=== PATIENT | female | born 1955 | race Caucasian/White ===

== ENCOUNTER 2017-10-29 07:28 | Observation (INO) ==
[2017-10-29] MEDS ORDERED: Morphine Inj 4 MG/ML Vial IV.PUSH ONE ×2 (08:26→14:16)
[2017-10-29] MEDS ORDERED: Sod Chloride 0.9% Inj 1,000 ML IV.CONT SCH (08:30)
--- NOTE | 2017-10-29 08:40 | ED ---
HPI General Chief Complaint: Abdominal Pain Stated Complaint: Vomitting/EVAC Time Seen by Provider: 10/29/17 08:12 Source: patient Mode of arrival: EMS Limitations: no limitations History of Present Illness HPI narrative: 62-year-old female with abdominal pain, nausea vomiting diarrhea. Patient states that symptoms started this morning. Patient states the pain is cramping pain localized to lower abdomen. Patient denies any pain radiation. Patient denies fever chills. Patient denies any dysuria frequency. Patient denies any vaginal discharge or bleeding. Patient denies any recent sick contact. Patient denies any recent travel. Patient status post appendectomy, cholecystectomy and splenectomy. Patient has history hypertension , hyperlipidemia. On a scale of 1-10 the pain is an 8. MD complaint: abdominal pain Onset (ago): hour(s) Pain Consistency: constant Location: LLQ and RLQ Severity: moderate Severity scale (1-10): 7 Quality: cramping and sharp Radiation: none Migration to: no migration Relieving factors: nothing Exacerbating factors: nothing Associated symptoms: nausea, vomiting and diarrhea Related Data Home Medications Medication Instructions Recorded Confirmed alprazolam [Xanax] 2 mg PO TID 10/29/17 10/29/17 aspirin [Aspirin Low Dose] 81 mg PO DAILY 10/29/17 10/29/17 [id number]-wptw 1 cap PO BID PRN 10/29/17 10/29/17 [Fioricet] cyanocobalamin (vitamin B-12) 1,000 mcg PO DAILY 10/29/17 10/29/17 [Vitamin B-12] morphine-naltrexone [Embeda] 1 cap PO Q12HR 10/29/17 10/29/17 ramipril [Altace] 5 mg PO DAILY 10/29/17 10/29/17 sertraline [Zoloft] 200 mg PO DAILY 10/29/17 10/29/17 tizanidine [Zanaflex] 4 mg PO Q8HR 10/29/17 10/29/17 topiramate [Topamax] 100 mg PO BID 10/29/17 10/29/17 trazodone 100 mg PO HS 10/29/17 10/29/17 Allergies Allergy/AdvReac Type Severity Reaction Status Date / Time ampicillin Allergy Severe edema Verified 10/29/17 08:20 erythromycin base Allergy Severe Itching Verified 10/29/17 08:20 Review of Systems Except as stated in HPI: all other systems reviewed are negative PMFSH Medical History Medical History Anxiety (Acute) Cataract fragments of eye following cataract surgery (Acute) Chest pain (Acute) Depression (Acute) FHx: cholecystectomy (Acute) Fibromyalgia (Acute) HTN (hypertension) (Acute) High cholesterol (Acute) Migraine (Acute) Surgical History Surgical History H/O splenectomy (Acute) H/O: section (Acute) Hx of appendectomy (Acute) Hx of surgical amputation of finger (Acute) Family History Family History Mother Coronary artery disease Social History Social History Substance History: No History of Abuse Second Hand Smoke Exposure: No Smoking Status: Former smoker Tobacco Type: E-Cigarettes How Often Do You Have a Drink Containing Alcohol: Never Recent Travel in [facility] within the Last 8 Weeks: No Recent Out of Country Travel within the Last 8 Weeks: No Immunization History Tetanus Immunization: >5 Years Hx Influenza Vaccine This Season: Yes Exam Narrative Exam Narrative: GENERAL: Well-nourished, well-developed patient. SKIN: Focused skin assessment warm/dry. HEAD: Normocephalic. EYES: No scleral icterus. No injection or drainage. NECK: Supple, trachea midline. No JVD or lymphadenopathy. CARDIOVASCULAR: Regular rate and rhythm without murmurs, gallops, or rubs. RESPIRATORY: Breath sounds equal bilaterally. No accessory muscle use. GASTROINTESTINAL: Abdomen soft, nondistended. Patient has mild to moderate tenderness in palpation lower abdomen. No rebound tenderness. No mass. MUSCULOSKELETAL: No cyanosis, or edema. BACK: Nontender without obvious deformity. No CVA tenderness. Course Initial Documented Vital Signs Temperature 97 F L 10/29/17 07:52 Pulse Rate 74 10/29/17 07:52 Respiratory Rate 21 10/29/17 07:52 Blood Pressure 121/58 L 10/29/17 07:52 Pulse Oximetry 99 10/29/17 07:52 Last Documented Vital Signs Temperature 98.1 F 10/30/17 15:42 Pulse Rate 75 10/30/17 15:42 Respiratory Rate 18 10/30/17 15:42 Blood Pressure 195/85 H 10/30/17 15:42 Pulse Oximetry 100 10/30/17 15:42 Medical Decision Making MDM Narrative Medical decision making narrative: 62-year-old female complains of abdominal pain with nausea vomiting diarrhea. Normal saline solution 1 25 cc an hour. Zofran 4 mg ODT. Levaquin 750 mg IV. Flagyl 500 mg IV. Differential Diagnosis Differential Diagnosis: Differential diagnosis including gastroenteritis, gastritis, PUD, pancreatitis, colitis, UTI, pyelonephritis, nephrolithiasis. Lab Data Result diagrams: 10/30/17 03:31 10/29/17 08:38 Lab Results 10/29/17 10/29/17 10/29/17 Range/Units 08:30 08:38 18:32 WBC 19.4 H (4.0-11.0) th/mm3 RBC 4.18 (4.00-5.30) mil/mm3 Hgb 12.4 (11.6-15.3) gm/dL Hct 38.1 (35.0-46.0) % MCV 91.1 (80.0-100.0) fL MCH 29.6 (27.0-34.0) pg MCHC 32.5 (32.0-36.0) % RDW 13.9 (11.6-17.2) % Plt Count 313 (150-450) th/mm3 MPV 9.6 (7.0-11.0) fL Prelim Diff (Auto) Slide review pending Neut % (Auto) 63.3 (16.0-70.0) % Lymph % (Auto) 32.7 (9.0-44.0) % [place] % (Auto) 2.6 (0.0-8.0) % Eos % (Auto) 0.8 (0.0-4.0) % Baso % (Auto) 0.6 (0.0-2.0) % Neut # (Auto) 12.3 H (1.8-7.7) th/mm3 Lymph # (Auto) 6.3 H (1.0-4.8) th/mm3 [place] # (Auto) 0.5 (0.0-0.9) th/mm3 Eos # (Auto) 0.1 (0.0-0.4) th/mm3 Baso # (Auto) 0.1 (0.0-0.2) th/mm3 WBC Differential Manual diff final Seg Neuts % (Manual) 65 (16-70) % Lymphocytes % (Manual) 30 (9-44) % Monocytes % (Manual) 4 (0-8) % Eosinophils % (Manual) 1 (0-4) % Abs Neuts (Manual) 12.6 H (1.8-7.7) th/mm3 Differential Comment . Platelet Estimate Normal (Normal) Platelet Morphology Normal (Normal) Acanthocytes (Spur) 3+ H (None) Sodium 145 (136-145) meq/L Potassium 3.5 (3.5-5.1) meq/L Chloride 115 H (98-107) meq/L Carbon Dioxide 17.0 L (21.0-32.0) meq/L Anion Gap 13 (5-15) meq/L BUN 16 (7-18) mg/dL Creatinine 1.24 H (0.50-1.00) mg/dL Estimated GFR 44 L (>89) mL/min Random Glucose 146 H (74-106) mg/dL Calcium 9.3 (8.5-10.1) mg/dL Total Bilirubin 0.6 (0.2-1.0) mg/dL AST 21 (15-37) U/L ALT 22 (10-53) U/L Alkaline Phosphatase 77 (45-117) U/L Total Protein 6.7 (6.4-8.2) g/dL Albumin 3.8 (3.4-5.0) g/dL Lipase 167 (73-393) U/L Urine Color Kathy (Yellw/Straw) Urine Clarity Hazy H (Clear) Urine pH 5.0 (5.0-8.5) Ur Specific [place] 1.041 H (1.002-1.035) Urine Protein Negative (Neg-Trace) mg/dL Urine Glucose (UA) Negative (Negative) mg/dL Urine Ketones Trace H (Negative) mg/dL Urine Occult Blood Small H (Negative) Urine Nitrate Negative (Negative) Urine Bilirubin Negative (Negative) Urine Urobilinogen 2.0 H (Less than 2) mg/dL Ur Leukocyte Esterase Negative (Negative) Urine RBC 4 H (0-3) /hpf Urine WBC Less than 1 (0-5) /hpf Ur Squamous Epith Cells 1 (0-5) /hpf Micro UA Comment Culture not ind Urine Culture Comments Culture not ind Stl C.difficile Tox PCR (Negative) St C. diff Tox Epid 027 (Negative) 10/30/17 10/30/17 Range/Units 01:30 03:31 WBC (4.0-11.0) th/mm3 RBC (4.00-5.30) mil/mm3 Hgb 10.4 L D (11.6-15.3) gm/dL Hct 31.3 L (35.0-46.0) % MCV (80.0-100.0) fL MCH (27.0-34.0) pg MCHC (32.0-36.0) % RDW (11.6-17.2) % Plt Count (150-450) th/mm3 MPV (7.0-11.0) fL Prelim Diff (Auto) Neut % (Auto) (16.0-70.0) % Lymph % (Auto) (9.0-44.0) % [place] % (Auto) (0.0-8.0) % Eos % (Auto) (0.0-4.0) % Baso % (Auto) (0.0-2.0) % Neut # (Auto) (1.8-7.7) th/mm3 Lymph # (Auto) (1.0-4.8) th/mm3 [place] # (Auto) (0.0-0.9) th/mm3 Eos # (Auto) (0.0-0.4) th/mm3 Baso # (Auto) (0.0-0.2) th/mm3 WBC Differential Seg Neuts % (Manual) (16-70) % Lymphocytes % (Manual) (9-44) % Monocytes % (Manual) (0-8) % Eosinophils % (Manual) (0-4) % Abs Neuts (Manual) (1.8-7.7) th/mm3 Differential Comment Platelet Estimate (Normal) Platelet Morphology (Normal) Acanthocytes (Spur) (None) Sodium (136-145) meq/L Potassium (3.5-5.1) meq/L Chloride (98-107) meq/L Carbon Dioxide (21.0-32.0) meq/L Anion Gap (5-15) meq/L BUN (7-18) mg/dL Creatinine (0.50-1.00) mg/dL Estimated GFR (>89) mL/min Random Glucose (74-106) mg/dL Calcium (8.5-10.1) mg/dL Total Bilirubin (0.2-1.0) mg/dL AST (15-37) U/L ALT (10-53) U/L Alkaline Phosphatase (45-117) U/L Total Protein (6.4-8.2) g/dL Albumin (3.4-5.0) g/dL Lipase (73-393) U/L Urine Color (Yellw/Straw) Urine Clarity (Clear) Urine pH (5.0-8.5) Ur Specific [place] (1.002-1.035) Urine Protein (Neg-Trace) mg/dL Urine Glucose (UA) (Negative) mg/dL Urine Ketones (Negative) mg/dL Urine Occult Blood (Negative) Urine Nitrate (Negative) Urine Bilirubin (Negative) Urine Urobilinogen (Less than 2) mg/dL Ur Leukocyte Esterase (Negative) Urine RBC (0-3) /hpf Urine WBC (0-5) /hpf Ur Squamous Epith Cells (0-5) /hpf Micro UA Comment Urine Culture Comments Stl C.difficile Tox PCR Negative (Negative) St C. diff Tox Epid 027 Negative (Negative) Imaging Data Radiologist's impression: ITS Impressions Abdomen/Pelvis CT 10/29/17 09:46 CONCLUSION: 1. Diffuse colitis but greatest involving the descending and sigmoid colon. Slight inflammatory changes and minimal ascites. No perforation or abscess. 2. Cholecystectomy. Discharge Plan Discharge Disposition Patient Disposition: 30 Still Patient Discharge Details Discharge Problem: Colitis Physicians Team ED Provider: Tl Marques Primary Care Provider: Loco Quiroga V Attending Provider: Luther Berumen Other Providers: Barbara Ayers Discharge Interventions Interventions: ED Discharge Assessment Last Done: 10/29/17 15:37 Vital Signs Last Done: 10/29/17 13:00 Status ED Status: Left Department Discharge Information Discharge Date/Time: 10/29/17 15:37
[2017-10-29 08:41] LABS: Baso # (Auto) 0.1 th/mm3 (0.0-0.2); Baso % (Auto) 0.6 % (0.0-2.0); Eos # (Auto) 0.1 th/mm3 (0.0-0.4); Eos % (Auto) 0.8 % (0.0-4.0); Hematocrit 38.1 % (35.0-46.0); Hemoglobin 12.4 gm/dL (11.6-15.3); Lymph # (Auto) 6.3 th/mm3 (1.0-4.8); Lymph % (Auto) 32.7 % (9.0-44.0); Mean Corpuscular HGB Conc 32.5 % (32.0-36.0); Mean Corpuscular Hemoglobin 29.6 pg (27.0-34.0); Mean Corpuscular Volume 91.1 fL (80.0-100.0); Mean Platelet Volume 9.6 fL (7.0-11.0); Mono # (Auto) 0.5 th/mm3 (0.0-0.9); Mono % (Auto) 2.6 % (0.0-8.0); Neut # (Auto) 12.3 th/mm3 (1.8-7.7); Neut % (Auto) 63.3 % (16.0-70.0); Platelet Count 313 th/mm3 (150-450); Red Blood Count 4.18 mil/mm3 (4.00-5.30); Red Cell Distribution Width 13.9 % (11.6-17.2); White Blood Count 19.4 th/mm3 (4.0-11.0)
[2017-10-29 09:09] LABS: Alanine Aminotransferase 22 U/L (10-53)
[2017-10-29 09:10] LABS: Eosinophils 1 % (0-4); Lymphocytes 30 % (9-44); Monocytes 4 % (0-8)
[2017-10-29 09:11] LABS: Platelet Estimate Normal (Normal); Platelet Morphology Normal (Normal)
[2017-10-29 09:13] LABS: Acanthocytes 3+
[2017-10-29 09:15] LABS: Alkaline Phosphatase 77 U/L (45-117); Total Protein 6.7 g/dL (6.4-8.2)
[2017-10-29 09:18] LABS: Albumin 3.8 g/dL (3.4-5.0); Anion Gap 13 meq/L (5-15); Blood Urea Nitrogen 16 mg/dL (7-18); Calcium 9.3 mg/dL (8.5-10.1); Chloride 115 meq/L (98-107); Glomerular Filtration Rate 44 mL/min (>89); Glucose,Random 146 mg/dL (74-106); Lipase 167 U/L (73-393); Sodium 145 meq/L (136-145)
[2017-10-29 09:20] LABS: Aspartate Aminotransferase 21 U/L (15-37); Potassium 3.5 meq/L (3.5-5.1)
--- NOTE | 2017-10-29 10:43 | CT ---
EXAM DATE: 10/29/2017 10:31 AM EDT AGE/SEX: 62 years / Female INDICATIONS: Bilateral lower quadrant pain, nausea and vomiting. CLINICAL DATA: This is the patient's initial encounter. Patient reports that signs and symptoms have been present for 1 day and indicates a pain score of 7/10. MEDICAL/SURGICAL HISTORY: Hypertension. Fibromyalgia. Cholecystectomy. section. Spl enectomy. Appendectomy. ORAL CONTRAST: No oral contrast ingested. RADIATION DOSE: 6.64 CTDI (mGy) COMPARISON: POI, CT ABDOMEN AND PELVIS W AND W/O CONTRAST, 09/13/2017. . TECHNIQUE: Multiple contiguous axial images were obtained through the abdomen and pelvis following b olus infusion of 80 ml Omnipaque 350 (iohexol) nonionic water-soluble contrast as a single exam dos e. No oral contrast ingested. Using automated exposure control and adjustment of the mA and/or kV ac cording to patient size, radiation dose was kept as low as reasonably achievable to obtain optimal di agnostic quality images. DICOM format image data is available electronically for review and comparis on. FINDINGS: Lower Lungs: The visualized lower lungs are clear. Liver: The liver has a homogeneous density without space-occupying lesion. Cholecystectomy clips. The re is no dilation of the biliary tree. Spleen: Homogeneous density without enlargement. Pancreas: Unremarkable without mass or calcification. Kidneys: Normal in size and shape. No evidence of mass or hydronephrosis. Adrenal Glands: Unremarkable. Aorta: The aorta and proximal iliac vessels are grossly unremarkable without aneurysmal dilation. Bowel/Mesentery: Diffuse colonic wall thickening greatest within the descending and sigmoid colon. S light inflammatory changes in minimal adjacent fluid. Abdominal Wall: Intact. Retroperitoneum: No evidence of adenopathy in the retrocrural, para-aortic, or deep pelvic regions. Bladder: Contours are smooth. Reproductive Organs: No abnormal masses or calcifications seen. Inguinal: The inguinal region is unremarkable without evidence of adenopathy. Bony Structures: Unremarkable. CONCLUSION: 1. Diffuse colitis but greatest involving the descending and sigmoid colon. Slight inflammatory tejada ges and minimal ascites. No perforation or abscess. 2. Cholecystectomy. Electronically signed by: Vineet Elliott MD 10/29/2017 10:42 AM EDT
[2017-10-29] MEDS: Enoxaparin Inj 40 MG/0.4 ML Syringe SQ SCH (13:16)
--- NOTE | 2017-10-29 13:41 | P.HPIM ---
History of Present Illness Primary Care Physician: Loco Quiroga MD History of Present Illness: Mrs. Marcail is a 62 year old female. She has come into the hospital secondary to hyperemesis. Mild dehydration is present. Imaging of the abdomen shows colitis. I question her on whether she has a past history of any recurrent pattern of this condition. Patient says in the past 3 months she might have been having monthly episodes of colitis. Her cooks a lot so she feels that she might have a risk for foodborne illness. No sick contacts which would decrease her chance for a viral illness. No recent antibiotic use but C. difficile colitis is being evaluated for. Primary complaint is abdominal pain which is in her lower abdomen and crampy. She has had a splenectomy, cholecystectomy, and appendectomy. No other complaints. - Diagnosis (1) Hyperemesis (2) Dehydration Inpatient Certification: I certify that the inpatient services were ordered in accordance with Medicare regulations governing the order. This includes certification that hospital inpatient services are reasonable and necessary and in the case of services not specified as inpatient-only under 42 CFR 419.22(n), that they are appropriately provided as inpatient services in accordance to with the 2-midnight benchmark under 43 CFR 412.3(e) Review of Systems Constitutional: Denies body ache(s), Denies fever(s), Denies night sweats Eyes: Denies blind spots, Denies blurry vision, Denies change in vision Ears, Nose, Mouth, and Throat: Denies abnormal hearing, Denies bleeding gums, Denies change in voice Cardiovascular: Denies chest pain, Denies chest pain at rest, Denies chest pain with activity, Denies rapid, pounding, or irregular heartbeat Respiratory: Denies cough, Denies shortness of breath, Denies wheezing Gastrointestinal: Reports abdominal pain, Reports nausea, Reports vomiting Comments: Diarrhea Musculoskeletal: Denies back pain, Denies body aches, Denies deformity, Denies joint pain Skin/Breast: Denies rash, Denies skin pain, Denies skin ulcer Neurologic: Denies abnormal hearing, Denies abnormal movements, Denies abnormal speech PMFSH - History History Provided By: Patient, Family Member - Medical History Medical History: Medical History (Last Reviewed 10/29/17 @ 08:38 by Tl Marques MD) Anxiety Cataract fragments of eye following cataract surgery Chest pain Depression FHx: cholecystectomy Fibromyalgia HTN (hypertension) High cholesterol Migraine - Surgical History Surgical History: Surgical History (Last Reviewed 10/29/17 @ 08:38 by Tl Marques MD) H/O splenectomy H/O: section Hx of appendectomy Hx of surgical amputation of finger - Family History Family History: Family History (Last Updated 10/29/17 @ 14:12 by Eugene Esposito MD) Mother Coronary artery disease - Tobacco History Second Hand Smoke Exposure: Yes Tobacco Use In Past 30 Days: No Smoking Status: Former smoker Tobacco Type: E-Cigarettes - Alcohol History How Often Do You Have a Drink Containing Alcohol: Never - Substance Use History Substance History: No History of Abuse - Travel History Recent Travel in the [place] Within the Last 8 Weeks: No Recent Travel Out of the Country Within the Last 8 Weeks: No - Immunization History Tetanus Immunization: >5 Years Hx Influenza Vaccine This Season: Yes Medications and Allergies Active Medications: Active Medications Al Hydroxide/Mg Hydroxide (Milk Of Magndaniela Liq) 30 ml PO Q12H PRN PRN Reason: Mild Constipation Enoxaparin Sodium (Lovenox Inj) 40 mg SQ Q24H [place]YSON Last Admin: 10/29/17 13:16 Dose: 40 mg Sodium Chloride (Ns Inj) 1,000 mls @ 125 mls/hr IV.CONT .Q8H ALLYSON Stop: 10/29/17 16:29 Last Admin: 10/29/17 09:36 Dose: 125 mls/hr Levofloxacin/Dextrose (Levaquin 750 Mg Premix Inj) 150 mls @ 100 mls/hr IV.SIG ONCE ONE Stop: 10/29/17 13:41 Last Admin: 10/29/17 13:17 Dose: 100 mls/hr Sodium Chloride (Ns Inj) 1,000 mls @ 100 mls/hr IV.CONT .Q10H [place] Ondansetron HCl (Zofran Inj) 4 mg IV.PUSH Q6H PRN PRN Reason: NAUSEA OR VOMITING Sodium Chloride (Ns Flush) 2 ml IV.FLUSH PRN PRN PRN Reason: FLUSH AFTER USING IV ACCESS Last Admin: 10/29/17 09:39 Dose: 2 ml Allergies Allergy/AdvReac Type Severity Reaction Status Date / Time ampicillin Allergy Severe edema Verified 10/29/17 08:20 erythromycin base Allergy Severe Itching Verified 10/29/17 08:20 Home Medications Medication Instructions Recorded Confirmed Type alprazolam [Xanax] 2 mg PO TID 10/29/17 10/29/17 History aspirin [Aspirin Low Dose] 81 mg PO DAILY 10/29/17 10/29/17 History [id number]-bmevcidesrfms-cwcy 1 cap PO BID PRN 10/29/17 10/29/17 History [Fioricet] cyanocobalamin (vitamin B-12) 1,000 mcg PO DAILY 10/29/17 10/29/17 History [Vitamin B-12] morphine-naltrexone [Embeda] 1 cap PO Q12HR 10/29/17 10/29/17 History ramipril [Altace] 5 mg PO DAILY 10/29/17 10/29/17 History sertraline [Zoloft] 200 mg PO DAILY 10/29/17 10/29/17 History tizanidine [Zanaflex] 4 mg PO Q8HR 10/29/17 10/29/17 History topiramate [Topamax] 100 mg PO BID 10/29/17 10/29/17 History trazodone 100 mg PO HS 10/29/17 10/29/17 History Exam Vital signs: Vital Signs 10/29/17 07:52 10/29/17 08:31 10/29/17 09:23 Temperature 97 F L Pulse Rate 74 74 Respiratory Rate 21 18 18 Blood Pressure 121/58 L 146/88 H Pulse Oximetry 99 98 10/29/17 13:00 Temperature Pulse Rate 95 H Respiratory Rate 15 Blood Pressure 157/80 H Pulse Oximetry 97 Intake & Output 10/28/17 10/29/17 10/29/17 18:59 06:59 18:59 Weight 46.825 kg - Routine HEENT Exam Comments: GENERAL: NAD, A&Ox3 HEAD: Normocephalic. NECK: Supple, trachea midline. No lymphadenopathy. EYES: No scleral icterus. No injection or drainage. CARDIOVASCULAR: Regular rate and rhythm without murmurs, gallops, or rubs. RESPIRATORY: Breath sounds equal bilaterally. No accessory muscle use. GASTROINTESTINAL: Abdomen soft, non-tender, nondistended. MUSCULOSKELETAL: No cyanosis, or edema. SKIN: Warm and dry. NEURO: No focal neurological deficits. Results - Labs CBC & Chem 7: 10/29/17 08:30 10/29/17 08:38 Labs: Short CBC 10/29/17 Range/Units 08:30 WBC 19.4 H (4.0-11.0) th/mm3 Hgb 12.4 (11.6-15.3) gm/dL Hct 38.1 (35.0-46.0) % Plt Count 313 (150-450) th/mm3 BMP 10/29/17 08:38 Sodium 145 Potassium 3.5 Chloride 115 H Carbon Dioxide 17.0 L BUN 16 Creatinine 1.24 H Calcium 9.3 Liver Function 10/29/17 Range/Units 08:38 Total Bilirubin 0.6 (0.2-1.0) mg/dL AST 21 (15-37) U/L ALT 22 (10-53) U/L Alkaline Phosphatase 77 (45-117) U/L Albumin 3.8 (3.4-5.0) g/dL - Imaging Impressions Abdomen/Pelvis CT 10/29/17 09:46 CONCLUSION: 1. Diffuse colitis but greatest involving the descending and sigmoid colon. Slight inflammatory changes and minimal ascites. No perforation or abscess. 2. Cholecystectomy. Caprini VTE Risk Assessment Caprini VTE Risk Assessment: Moderate/High Risk (score >= 2) Caprini Risk Assessment Model: Point Value = 1 Point Value = 2 Point Value = 3 Point Value = 5 Age 41-60 Minor surgery BMI > 25 kg/m2 Swollen legs Varicose veins or History of unexplained or recurrent spontaneous Oral contraceptives or hormone replacement Sepsis (< 1 month) Serious lung disease, including pneumonia (< 1 month) Abnormal pulmonary function Acute myocardial infarction Congestive heart failure (< 1 month) History of inflammatory bowel disease Medical patient at bed rest Age 61-74 Arthroscopic surgery Major open surgery (> 45 min) Laparoscopic surgery (> 45 min) Malignancy Confined to bed (> 72 hours) Immobilizing plaster cast Central venous access Age >= 75 History of VTE Family history of VTE Factor V Leiden Prothrombin [id number] Lupus anticoagulant Anticardiolipin antibodies Elevated serum homocysteine Heparin-induced thrombocytopenia Other congenital or acquired thrombophilia Stroke (< 1 month) Elective arthroplasty Hip, pelvis, or leg fracture Acute spinal cord injury (< 1 month) Prophylaxis Regimen: Total Risk Factor Score Risk Level Prophylaxis Regimen 0-1 Low Early ambulation 2 Moderate Order ONE of the following: *Sequential Compression Device (SCD) *Heparin 5000 units SQ BID 3-4 Higher Order ONE of the following medications: *Heparin 5000 units SQ TID *Enoxaparin/Lovenox 40 mg SQ daily (WT < 150 kg, CrCl > 30 mL/min) *Enoxaparin/Lovenox 30 mg SQ daily (WT < 150 kg, CrCl > 10-29 mL/min) *Enoxaparin/Lovenox 30 mg SQ BID (WT < 150 kg, CrCl > 30 mL/min) AND/OR *Sequential Compression Device (SCD) 5 or more Highest Order ONE of the following medications: *Heparin 5000 units SQ TID (Preferred with Epidurals) *Enoxaparin/Lovenox 40 mg SQ daily (WT < 150 kg, CrCl > 30 mL/min) *Enoxaparin/Lovenox 30 mg SQ daily (WT < 150 kg, CrCl > 10-29 mL/min) *Enoxaparin/Lovenox 30 mg SQ BID (WT < 150 kg, CrCl > 30 mL/min) AND *Sequential Compression Device (SCD) Assessment and Plan - Assessment (1) Hyperemesis Code(s): R11.10 - Vomiting, unspecified Status: Acute (2) Dehydration Code(s): E86.0 - Dehydration Status: Acute - Plan 62-year-old female admitted secondary to hyperemesis, dehydration, and colitis Colitis Hyperemesis Dehydration Screen for C. difficile IV hydration Clear liquid diet Consult gastroenterology, given patient's history of possible established pattern of colitis Flagyl IV IV morphine for pain as needed Hypertension Continue baseline treatment Follow blood pressures Adjust treatments as needed Hyperlipidemia Continue present treatment Follow as an outpatient Anxiety Cataract fragments of eye following cataract surgery Chest pain history Depression history Fibromyalgia Migraine history No acute changes in these conditions No change to baseline treatments DVT prophylaxis Lovenox
[2017-10-29] MEDS ORDERED: Morphine Inj 4 MG/ML Vial IV.PUSH PRN (14:00)
--- NOTE | 2017-10-29 15:39 | ECG ---
Date Performed: 10/29/2017 Time Performed: 07:45:13 PTAGE: 62 years EKG: SINUS BRADYCARDIA WITH OCCASIONAL SUPRAVENTRICULAR PREMATURE COMPLEXES ST/T-WAVE ABNORMALIT Y, CONSIDER INFERIOR ISCHEMIA ABNORMAL ECG NO PREVIOUS TRACING DOCTOR: Zafar Adames Interpretating Date/Time 10/29/2017 15:36:27
--- NOTE | 2017-10-29 17:20 | P.CONGI ---
History of Present Illness Consult date: 10/29/17 Consult reason: Abdominal pain Chief complaint: colitis History of Present Illness: This is a 62-year-old female who presented to the emergency room on 10/29/2017 with lower abdominal pain uncontrolled and nausea and vomiting. Patient states onset of watery uncontrolled diarrhea at least 3-4 times a day which is aggravated by food, no relieving factors. Onset of symptoms approximately 3 months ago she describes the pain as a lower crampy sensation and his continued to worsen up to the point of the last 24 hours where she could not control the pain. Patient also notes small amount of bright red blood on tissue when wiping this a.m. but otherwise no obvious bleeding. Patient has no significant family history of colon cancer and does note last colonoscopy in the [place] area in 2015 showing polyps and diverticulosis. Patient states she no longer eats corn or notes. Current labs show hemoglobin 12.4 without any hematemesis or obvious oozing rectal bleeding. Patient denies any fever or headaches. Patient states mild nausea persists but no further vomiting. Abdominal imaging showed diffuse colitis in the descending and sigmoid colon, minimal ascites, and no perforation. Patient denies any recent sick contacts and no recent antibiotic use. Review of Systems All other systems reviewed negative except as stated in HPI PMFSH - History History Provided By: Patient, Family Member - Medical History Medical History: Medical History (Last Reviewed 10/29/17 @ 08:38 by Tl Marques MD) Anxiety Cataract fragments of eye following cataract surgery Chest pain Depression FHx: cholecystectomy Fibromyalgia HTN (hypertension) High cholesterol Migraine - Surgical History Surgical History: Surgical History (Last Reviewed 10/29/17 @ 08:38 by Tl Marques MD) H/O splenectomy H/O: section Hx of appendectomy Hx of surgical amputation of finger - Family History Family History: Family History (Last Updated 10/29/17 @ 14:12 by Eugene Esposito MD) Mother Coronary artery disease - Tobacco History Second Hand Smoke Exposure: Yes Tobacco Use In Past 30 Days: No Smoking Status: Former smoker Tobacco Type: E-Cigarettes - Alcohol History How Often Do You Have a Drink Containing Alcohol: Never - Substance Use History Substance History: No History of Abuse - Travel History Recent Travel in the [place] Within the Last 8 Weeks: No Recent Travel Out of the Country Within the Last 8 Weeks: No - Immunization History Tetanus Immunization: >5 Years Hx Influenza Vaccine This Season: Yes Medications and Allergies Active Medications: Active Medications Al Hydroxide/Mg Hydroxide (Milk Of Adam Liq) 30 ml PO Q12H PRN PRN Reason: Mild Constipation Enoxaparin Sodium (Lovenox Inj) 40 mg SQ Q24H [facility] Last Admin: 10/29/17 13:16 Dose: 40 mg Sodium Chloride (Ns Inj) 1,000 mls @ 100 mls/hr IV.CONT .Q10H [facility] Metronidazole/Sodium Chloride (Flagyl 500 Mg Inj) 100 mls @ 100 mls/hr IV.SIG Q8H [facility] Morphine Sulfate (Morphine Inj) 2 mg IV.PUSH Q4H PRN PRN Reason: PAIN SCALE 3 TO 5 Morphine Sulfate (Morphine Inj) 4 mg IV.PUSH Q4H PRN PRN Reason: PAIN SCALE 6 TO 10 Ondansetron HCl (Zofran Inj) 4 mg IV.PUSH Q6H PRN PRN Reason: NAUSEA OR VOMITING Sodium Chloride (Ns Flush) 2 ml IV.FLUSH PRN PRN PRN Reason: FLUSH AFTER USING IV ACCESS Last Admin: 10/29/17 09:39 Dose: 2 ml Allergies Allergy/AdvReac Type Severity Reaction Status Date / Time ampicillin Allergy Severe edema Verified 10/29/17 08:20 erythromycin base Allergy Severe Itching Verified 10/29/17 08:20 Home Medications Medication Instructions Recorded Confirmed Type alprazolam [Xanax] 2 mg PO TID 10/29/17 10/29/17 History aspirin [Aspirin Low Dose] 81 mg PO DAILY 10/29/17 10/29/17 History [id number]-[id number] 1 cap PO BID PRN 10/29/17 10/29/17 History [Fioricet] cyanocobalamin (vitamin B-12) 1,000 mcg PO DAILY 10/29/17 10/29/17 History [Vitamin B-12] morphine-naltrexone [Embeda] 1 cap PO Q12HR 10/29/17 10/29/17 History ramipril [Altace] 5 mg PO DAILY 10/29/17 10/29/17 History sertraline [Zoloft] 200 mg PO DAILY 10/29/17 10/29/17 History tizanidine [Zanaflex] 4 mg PO Q8HR 10/29/17 10/29/17 History topiramate [Topamax] 100 mg PO BID 10/29/17 10/29/17 History trazodone 100 mg PO HS 10/29/17 10/29/17 History Exam Vital signs: Vital Signs 10/29/17 07:52 10/29/17 08:31 10/29/17 09:23 Temperature 97 F L Pulse Rate 74 74 Respiratory Rate 18 18 Blood Pressure 121/58 L 146/88 H Pulse Oximetry 99 98 10/29/17 13:00 10/29/17 15:16 10/29/17 16:37 Temperature 98.6 F Pulse Rate 95 H 96 H 93 H Respiratory Rate 15 18 16 Blood Pressure 157/80 H 158/79 H 140/72 Pulse Oximetry 97 95 96 Intake & Output 10/28/17 10/29/17 10/29/17 18:59 06:59 18:59 Weight 46.825 kg - Constitutional mild distress - Routine HEENT Exam Head: Present: normocephalic, atraumatic Eye: Present: EOMI ENT: Present: mucous membranes dry - Routine Neck Exam Present: supple - Routine Respiratory Exam Present: CTA bilaterally (No obvious rhonchi or wheezing) - Routine Cardiovascular Exam Present: RRR - Routine Abdominal Exam Present: normoactive bowel sounds (Soft bowel sounds in all 4 quadrants, taut.) , distended (Mild) - Routine Skin Exam Present: intact, dry, pallor (Mild) Results - Labs CBC & Chem 7: 10/29/17 08:30 10/29/17 08:38 Labs: Laboratory Results - last 24 hr 10/29/17 10/29/17 08:30 08:38 WBC 19.4 H RBC 4.18 Hgb 12.4 Hct 38.1 MCV 91.1 MCH 29.6 MCHC 32.5 RDW 13.9 Plt Count 313 MPV 9.6 Prelim Diff (Auto) Slide review pending Neut % (Auto) 63.3 Lymph % (Auto) 32.7 [place] % (Auto) 2.6 Eos % (Auto) 0.8 Baso % (Auto) 0.6 Neut # (Auto) 12.3 H Lymph # (Auto) 6.3 H [place] # (Auto) 0.5 Eos # (Auto) 0.1 Baso # (Auto) 0.1 WBC Differential Manual diff final Seg Neuts % (Manual) 65 Lymphocytes % (Manual) 30 Monocytes % (Manual) 4 Eosinophils % (Manual) 1 Abs Neuts (Manual) 12.6 H Differential Comment . Platelet Estimate Normal Platelet Morphology Normal Acanthocytes (Spur) 3+ H Sodium 145 Potassium 3.5 Chloride 115 H Carbon Dioxide 17.0 L Anion Gap 13 BUN 16 Creatinine 1.24 H Estimated GFR 44 L Random Glucose 146 H Calcium 9.3 Total Bilirubin 0.6 AST 21 ALT 22 Alkaline Phosphatase 77 Total Protein 6.7 Albumin 3.8 Lipase 167 - Imaging Impressions Abdomen/Pelvis CT 10/29/17 09:46 CONCLUSION: 1. Diffuse colitis but greatest involving the descending and sigmoid colon. Slight inflammatory changes and minimal ascites. No perforation or abscess. 2. Cholecystectomy. Assessment and Plan (1) Colitis Status: Acute Code(s): K52.9 - Noninfective gastroenteritis and colitis, unspecified (2) Hyperemesis Status: Acute Code(s): R11.10 - Vomiting, unspecified (3) Dehydration Status: Acute Code(s): E86.0 - Dehydration - Plan Diffuse colitis in the descending and sigmoid colon. Currently patient denies being around anyone sick, and no recent antibiotic usage. Onset of symptoms approximately 3 months which have waxed and waned. Labs show WBC count 19.4, LFTs are normal Watery diarrhea approximately 3-4 times a day occasional pudding consistency. Symptoms have continued to worsen especially over the last 24 hours before coming to the hospital for evaluation Mild bright red rectal blood noted when wiping on tissue paper. Labs show current hemoglobin 12.4. Possibility of hemorrhoids irritated. Minimal ascites related to #1, abdominal imaging showed no perforation Nausea and vomiting uncontrolled this a.m. probably secondary to #1 62-year-old female presented to the emergency room on 10/29/2017 with nausea vomiting lower abdominal pain and cramping 3 months onset which is continued to worsen. Abdominal imaging showed diffuse colitis descending and sigmoid colon. Stool studies pending and will need to rule out C. difficile colitis. Current labs show leukocytosis with WBC count 19.4 and hemoglobin 12.4, LFTs are normal Patient had colonoscopy in the [place] area which show polyps and diverticulosis back in 2016. Plan Diet n.p.o., may have clear liquids when nausea and vomiting controlled per attending IV Flagyl Stool studies, C. difficile, pathogens, ova and parasite Antiemetics Further recommendations to follow Monitor labs and any obvious rectal bleeding Patient was seen per myself and Dr. Ayers, note was written on her behalf
[2017-10-29] MEDS: Sod Chloride 0.9% Inj 1,000 ML IV.CONT SCH (17:40)
[2017-10-29 19:06] LABS: Bilirubin,Urine Negative (Negative); Clarity,Urine Hazy (Clear); Color,Urine Amber (Yellw/Straw); Glucose,Urine (UA) Negative (Negative); Leukocyte Esterase,Urine Negative (Negative); Nitrite,Urine Negative (Negative); Specific Gravity,Urine 1.041 (1.002-1.035); Squamous Epithelial Cell,Urine 1 /hpf (0-5)
[2017-10-29] MEDS: Morphine Inj 4 MG/ML Vial IV.PUSH PRN (20:44)
[2017-10-30] MEDS: Sod Chloride 0.9% Inj 1,000 ML IV.CONT SCH ×3 (01:15→21:16)
[2017-10-30] MEDS: Morphine Inj 4 MG/ML Vial IV.PUSH PRN ×2 (01:15→09:44)
[2017-10-30] MEDS ORDERED: Pantoprazole Inj 40 MG Vial IV.PUSH ONE (02:39)
[2017-10-30 03:56] LABS: Hematocrit 31.3 % (35.0-46.0); Hemoglobin 10.4 gm/dL (11.6-15.3)
[2017-10-30] MEDS ORDERED: MORPHINE NALTREXONE PO SCH (14:45)
--- NOTE | 2017-10-30 14:49 | P.PNIM ---
Subjective Interval history: Patient continues to have diarrhea. Nausea improved. Tolerating liquid diet. She would like to try food with more consistency. No fevers but she is having some chills. Physical Exam Vital signs: Vital Signs 10/29/17 15:16 10/29/17 16:37 10/29/17 17:21 Temperature 98.6 F Pulse Rate 96 H 93 H 78 Respiratory Rate 18 16 Blood Pressure 158/79 H 140/72 Pulse Oximetry 95 96 10/29/17 20:42 10/30/17 00:00 10/30/17 02:34 Temperature 97.3 F L 97.5 F L Pulse Rate 70 72 Respiratory Rate 17 16 16 Blood Pressure 106/75 112/77 Pulse Oximetry 97 97 10/30/17 04:00 10/30/17 08:00 10/30/17 09:00 Temperature 97.8 F 97.9 F Pulse Rate 96 H 77 66 Respiratory Rate 21 18 Blood Pressure 145/67 H 161/73 H Pulse Oximetry 96 100 10/30/17 12:00 Temperature 98.4 F Pulse Rate 72 Respiratory Rate 16 Blood Pressure 154/70 H Pulse Oximetry 98 Intake & Output 10/29/17 10/30/17 10/30/17 18:59 06:59 18:59 Intake Total 1250 / 1250 1100 / 1100 1200 / 1200 Balance 1250 / 1250 1100 / 1100 1200 / 1200 Weight 46.825 kg Intake: IV 1250 / 1250 1100 / 1100 1200 / 1200 NS Inj 1,000 ML @ 100 mls/hr IV 1000 / 1000 1000 / 1000 1000 / 1000 .CONT .Q10H [facility] Rx#:[id number] Levaquin 750 mg Premix Inj 150 150 / 150 ML @ 100 mls/hr IV.SIG ONCE ONE Rx#:[id number] Flagyl 500 MG Inj 100 ML @ 100 100 / 100 100 / 100 200 / 200 mls/hr IV.SIG Q8H [facility] Rx#: [id number] Narrative: GENERAL: Frail appearing female. CARDIOVASCULAR: Regular rate and rhythm without murmurs, gallops, or rubs. RESPIRATORY: Breath sounds equal bilaterally. No accessory muscle use. GASTROINTESTINAL: Abdomen soft, mild, diffuse tenderness to palpation. MUSCULOSKELETAL: No cyanosis, or edema. Psych: anxious Results - Labs CBC & Chem 7: 10/30/17 03:31 10/29/17 08:38 Laboratory Results - last 24 hr 07/07/18 07/08/18 18:32 03:31 Hgb 10.4 L D Hct 31.3 L Urine Color Kathy Urine Clarity Hazy H Urine pH 5.0 Ur Specific [place] 1.041 H Urine Protein Negative Urine Glucose (UA) Negative Urine Ketones Trace H Urine Occult Blood Small H Urine Nitrate Negative Urine Bilirubin Negative Urine Urobilinogen 2.0 H Ur Leukocyte Esterase Negative Urine RBC 4 H Urine WBC Less than 1 Ur Squamous Epith Cells 1 Micro UA Comment Culture not ind Urine Culture Comments Culture not ind Microbiology 10/30/17 01:30 Stool Stool for WBCs - Final Moderate WBC'S Assessment and Plan - Assessment (1) Colitis Code(s): K52.9 - Noninfective gastroenteritis and colitis, unspecified Status : Acute Plan: Stool cultures pending Continue Flagyl. Add Levaquin. Continue supportive care with IVF Appreciate GI following. (2) Dehydration Code(s): E86.0 - Dehydration Status: Acute Plan: Continue IVF. Follow up BMP (3) Anxiety Code(s): F41.9 - Anxiety disorder, unspecified Status: Acute Plan: Resume Xanax. Patient normally takes it at home 2-3 times a day. Continue Zoloft and Trazodone. (4) Hypertension Code(s): I10 - Essential (primary) hypertension Status: Acute (5) Fibromyalgia Code(s): M79.7 - Fibromyalgia Status: Acute Plan: Continue home medications. (6) Chronic pain Code(s): G89.29 - Other chronic pain Status: Acute Plan: Continue home medications. (7) Hyperemesis Code(s): R11.10 - Vomiting, unspecified Status: Resolved
[2017-10-30] MEDS ORDERED: Naloxone Inj 0.4 MG/ML Vial IV.PUSH PRN (15:35)
[2017-10-30] MEDS: Enoxaparin Inj 40 MG/0.4 ML Syringe SQ SCH (15:59)
[2017-10-30] MEDS: levoFLOXacin 500 MG Tablet PO SCH (15:59)
--- NOTE | 2017-10-30 16:38 | P.PNGI ---
Subjective Interval history: Feeling better.Having diarrhea, nausea.Stool c diff negative, rest of stool studies pending Physical Exam Vital signs: Vital Signs 10/29/17 16:37 10/29/17 17:21 10/29/17 20:42 Temperature 98.6 F 97.3 F L Pulse Rate 93 H 78 70 Respiratory Rate 16 17 Blood Pressure 140/72 106/75 Pulse Oximetry 96 97 10/30/17 00:00 10/30/17 02:34 10/30/17 04:00 Temperature 97.5 F L 97.8 F Pulse Rate 72 96 H Respiratory Rate 16 16 21 Blood Pressure 112/77 145/67 H Pulse Oximetry 97 96 10/30/17 08:00 10/30/17 09:00 10/30/17 12:00 Temperature 97.9 F 98.4 F Pulse Rate 77 66 72 Respiratory Rate 18 16 Blood Pressure 161/73 H 154/70 H Pulse Oximetry 100 98 10/30/17 15:42 Temperature 98.1 F Pulse Rate 75 Respiratory Rate 18 Blood Pressure 195/85 H Pulse Oximetry 100 Intake & Output 10/29/17 10/30/17 10/30/17 18:59 06:59 18:59 Intake Total 1250 / 1250 1100 / 1100 1200 / 1200 Balance 1250 / 1250 1100 / 1100 1200 / 1200 Weight 46.825 kg Intake: IV 1250 / 1250 1100 / 1100 1200 / 1200 NS Inj 1,000 ML @ 100 mls/hr IV 1000 / 1000 1000 / 1000 1000 / 1000 .CONT .Q10H [facility] Rx#:[id number] Levaquin 750 mg Premix Inj 150 150 / 150 ML @ 100 mls/hr IV.SIG ONCE ONE Rx#:[id number] Flagyl 500 MG Inj 100 ML @ 100 100 / 100 100 / 100 200 / 200 mls/hr IV.SIG Q8H [facility] Rx#: [id number] - Constitutional Comments: frail, shivering states because of pain and anxiety - Routine HEENT Exam Head: Present: normocephalic Eye: Present: EOMI ENT: Present: mucous membranes moist - Routine Cardiovascular Exam Present: RRR - Routine Abdominal Exam Present: soft, tenderness - Routine Neurological Exam Present: alert, oriented X3 - Routine Psychiatric Exam Present: normal affect Results - Labs CBC & Chem 7: 10/30/17 03:31 10/29/17 08:38 Laboratory Results - last 24 hr 10/29/17 10/30/17 10/30/17 18:32 01:30 03:31 Hgb 10.4 L D Hct 31.3 L Urine Color Kathy Urine Clarity Hazy H Urine pH 5.0 Ur Specific [place] 1.041 H Urine Protein Negative Urine Glucose (UA) Negative Urine Ketones Trace H Urine Occult Blood Small H Urine Nitrate Negative Urine Bilirubin Negative Urine Urobilinogen 2.0 H Ur Leukocyte Esterase Negative Urine RBC 4 H Urine WBC Less than 1 Ur Squamous Epith Cells 1 Micro UA Comment Culture not ind Urine Culture Comments Culture not ind Stl C.difficile Tox PCR Negative St C. diff Tox Epid 027 Negative Microbiology 10/30/17 01:30 Stool Stool for WBCs - Final Moderate WBC'S Assessment and Plan (1) Colitis Status: Acute Code(s): K52.9 - Noninfective gastroenteritis and colitis, unspecified (2) Hyperemesis Status: Resolved Code(s): R11.10 - Vomiting, unspecified (3) Dehydration Status: Acute Code(s): E86.0 - Dehydration - Plan Diffuse colitis in the descending and sigmoid colon. Currently patient denies being around anyone sick, and no recent antibiotic usage. Onset of symptoms approximately 3 months which have waxed and waned. Labs show WBC count 19.4, LFTs are normal Watery diarrhea approximately 3-4 times a day occasional pudding consistency. Symptoms have continued to worsen especially over the last 24 hours before coming to the hospital for evaluation Mild bright red rectal blood noted when wiping on tissue paper. Labs show current hemoglobin 12.4. Possibility of hemorrhoids irritated. Minimal ascites related to #1, abdominal imaging showed no perforation Nausea and vomiting uncontrolled this a.m. probably secondary to #1 62-year-old female presented to the emergency room on 10/29/2017 with nausea vomiting lower abdominal pain and cramping 3 months onset which is continued to worsen. Abdominal imaging showed diffuse colitis descending and sigmoid colon. Stool studies pending and will need to rule out C. difficile colitis. Current labs show leukocytosis with WBC count 19.4 and hemoglobin 12.4, LFTs are normal Patient had colonoscopy in the [place] area which show polyps and diverticulosis back in 2016. Plan Diet n.p.o., may have clear liquids when nausea and vomiting controlled per attending IV Flagyl Stool studies, C. difficile, pathogens, ova and parasite Antiemetics Further recommendations to follow Monitor labs and any obvious rectal bleeding EGD/colonoscopy in am npo after midnight fu rest of stool studies
[2017-10-30] MEDS ORDERED: Magnesium Citrate Liq 300 ML Bottle PO ONE (16:45)
[2017-10-30 17:57] LABS: Hematocrit 27.4 % (35.0-46.0); Hemoglobin 9.3 gm/dL (11.6-15.3); Mean Corpuscular Hemoglobin 29.9 pg (27.0-34.0); Mean Corpuscular Volume 87.9 fL (80.0-100.0); Mean Platelet Volume 9.5 fL (7.0-11.0); Platelet Count 257 th/mm3 (150-450); Red Blood Count 3.11 mil/mm3 (4.00-5.30); Red Cell Distribution Width 13.8 % (11.6-17.2); White Blood Count 16.1 th/mm3 (4.0-11.0)
[2017-10-30 18:17] LABS: Calcium 8.2 mg/dL (8.5-10.1); Carbon Dioxide 20.5 meq/L (21.0-32.0); Potassium 3.2 meq/L (3.5-5.1)
[2017-10-30] MEDS: Morphine Sulfate 15 MG SR Tablet PO SCH (21:09)
[2017-10-30] MEDS: Topiramate 100 MG Tablet PO SCH (21:10)
[2017-10-30] MEDS: traZODone 100 MG Tablet PO SCH (21:10)
[2017-10-31 00:55] LABS: Hematocrit 27.2 % (35.0-46.0); Hemoglobin 9.2 gm/dL (11.6-15.3)
[2017-10-31] MEDS ORDERED: Metoprolol Tartrate 25 MG Tablet PO SCH ×2 (05:30→18:15)
[2017-10-31] MEDS ORDERED: Chlorhexidine Gluconate 2% 1 Pack (2 Cloths) TOPICAL SCH ×2 (05:30→18:15)
[2017-10-31] MEDS ORDERED: Sodium Chlor 0.9% Inj 500 ML IV.SIG SCH ×2 (06:00→19:00)
[2017-10-31] MEDS: Sod Chloride 0.9% Inj 1,000 ML IV.CONT SCH ×2 (06:29→21:40)
[2017-10-31 08:00] LABS: Baso # (Auto) 0.1 th/mm3 (0.0-0.2); Baso % (Auto) 0.4 % (0.0-2.0); Eos % (Auto) 0.1 % (0.0-4.0); Hematocrit 27.2 % (35.0-46.0); Hemoglobin 9.3 gm/dL (11.6-15.3); Lymph # (Auto) 3.2 th/mm3 (1.0-4.8); Lymph % (Auto) 17.8 % (9.0-44.0); Mean Corpuscular HGB Conc 34.1 % (32.0-36.0); Mean Corpuscular Hemoglobin 29.8 pg (27.0-34.0); Mean Corpuscular Volume 87.1 fL (80.0-100.0); Mean Platelet Volume 9.8 fL (7.0-11.0); Mono # (Auto) 1.4 th/mm3 (0.0-0.9); Mono % (Auto) 7.6 % (0.0-8.0); Neut # (Auto) 13.3 th/mm3 (1.8-7.7); Neut % (Auto) 74.1 % (16.0-70.0); Platelet Count 274 th/mm3 (150-450); Red Blood Count 3.13 mil/mm3 (4.00-5.30); Red Cell Distribution Width 13.3 % (11.6-17.2)
[2017-10-31 08:33] LABS: Calcium 8.2 mg/dL (8.5-10.1); Carbon Dioxide 19.4 meq/L (21.0-32.0); Potassium 3.4 meq/L (3.5-5.1)
[2017-10-31] MEDS: Morphine Sulfate 15 MG SR Tablet PO SCH ×2 (08:59→21:39)
[2017-10-31] MEDS: Topiramate 100 MG Tablet PO SCH ×2 (08:59→21:39)
[2017-10-31] MEDS: Ramipril 5 MG Capsule PO SCH (09:01)
[2017-10-31] MEDS: Sertraline 100 MG Tablet PO SCH (09:26)
--- NOTE | 2017-10-31 14:05 | ECG ---
Date Performed: 10/31/2017 Time Performed: 03:42:44 PTAGE: 62 years EKG: Sinus rhythm NONSPECIFIC ST-WAVE ABNORMALITY COMPAIRED TO THE PRIOR STUDY THERE HAS BEEN IMPROVMENT IN ST SEGMENT DEPRESSION DIFFUSELY BORDERLINE ECG PREVIOUS TRACING 10/29/2017 DOCTOR: Familia Mejia Interpretating Date/Time 10/31/2017 14:03:52
--- NOTE | 2017-10-31 17:38 | P.PNIM ---
Subjective Interval history: Patient reports she is feeling better today. Will have EGD today. Physical Exam Vital signs: Vital Signs 10/30/17 20:29 10/30/17 21:25 10/30/17 23:32 Temperature 98.3 F 99.5 F Pulse Rate 80 93 H Respiratory Rate 16 17 Blood Pressure 152/69 H 157/68 H Pulse Oximetry 100 98 100 10/31/17 00:22 10/31/17 03:45 10/31/17 07:39 Temperature 98.6 F Pulse Rate 70 Respiratory Rate 15 18 Blood Pressure 139/67 Pulse Oximetry 98 98 10/31/17 07:48 10/31/17 12:00 10/31/17 16:00 Temperature 98.4 F 98.9 F 98.0 F Pulse Rate 70 58 L 68 Respiratory Rate 18 18 18 Blood Pressure 147/66 H 161/78 H 160/72 H Pulse Oximetry 99 161 H 98 Intake & Output 10/30/17 10/31/17 10/31/17 18:59 06:59 18:59 Intake Total 1200 / 1200 1100 / 1100 Balance 1200 / 1200 1100 / 1100 Intake: IV 1200 / 1200 1100 / 1100 NS Inj 1,000 ML @ 100 mls/hr IV 1000 / 1000 1000 / 1000 .CONT .Q10H [facility] Rx#:[id number] Flagyl 500 MG Inj 100 ML @ 100 200 / 200 100 / 100 mls/hr IV.SIG Q8H [facility] Rx#: [id number] Other: # Voids 4 Date of Last Bowel Movement 10/31/17 # Bowel Movements 2 Narrative: GENERAL: Frail appearing female. CARDIOVASCULAR: Regular rate and rhythm without murmurs, gallops, or rubs. RESPIRATORY: Breath sounds equal bilaterally. No accessory muscle use. GASTROINTESTINAL: Abdomen soft, mild, diffuse tenderness to palpation. MUSCULOSKELETAL: No cyanosis, or edema. Psych: calm Results - Labs CBC & Chem 7: 10/31/17 07:08 10/31/17 07:08 Laboratory Results - last 24 hr 10/30/17 10/30/17 10/31/17 16:51 16:51 00:45 WBC 16.1 H RBC 3.11 L Hgb 9.3 L 9.2 L Hct 27.4 L 27.2 L MCV 87.9 MCH 29.9 MCHC 34.0 RDW 13.8 Plt Count 257 MPV 9.5 Neut % (Auto) Lymph % (Auto) [place] % (Auto) Eos % (Auto) Baso % (Auto) Neut # (Auto) Lymph # (Auto) [place] # (Auto) Eos # (Auto) Baso # (Auto) WBC Differential Differential Comment Sodium 146 H Potassium 3.2 L Chloride 115 H Carbon Dioxide 20.5 L Anion Gap 11 BUN 9 Creatinine 0.78 Estimated GFR 75 L Random Glucose 142 H Calcium 8.2 L D 10/31/17 10/31/17 07:08 07:08 WBC 18.0 H RBC 3.13 L Hgb 9.3 L Hct 27.2 L MCV 87.1 MCH 29.8 MCHC 34.1 RDW 13.3 Plt Count 274 MPV 9.8 Neut % (Auto) 74.1 H Lymph % (Auto) 17.8 [place] % (Auto) 7.6 Eos % (Auto) 0.1 Baso % (Auto) 0.4 Neut # (Auto) 13.3 H Lymph # (Auto) 3.2 [place] # (Auto) 1.4 H Eos # (Auto) 0.0 Baso # (Auto) 0.1 WBC Differential . Differential Comment Auto diff final Sodium 147 H Potassium 3.4 L Chloride 117 H Carbon Dioxide 19.4 L Anion Gap 11 BUN 7 Creatinine 0.68 Estimated GFR 88 L Random Glucose 113 H Calcium 8.2 L Microbiology 10/30/17 01:30 Stool Enteric Pathogens (PCR) - Final No enteric pathogens detected by PCR (No Salmonella sp., Shigella sp., Campylobacter sp., Yersinia enterocolitica, Vibrio sp., Norovirus, or EHEC (Shiga Toxin 1 or Shiga Toxin 2) detected. 10/30/17 01:30 Stool Cryptosporidium Antigen - Final Negative - No Cryptosporicium antigen detected In selected cases of patients with a history of immunosuppression or foreign travel, a full ova and parasites examination may be desired. Contact the microbiology lab if full workup is indicated and subit another specimen for testing. 10/30/17 01:30 Stool Giardia Antigen (MARY) - Final Negative - No Giardia Antigen detected In selected cases of patients with a history of immunosuppression or foreign travel, a full ova and parasites examination may be desired. Contact the microbiology lab if full workup is indicated and subit another specimen for testing. Assessment and Plan - Assessment (1) Colitis Code(s): K52.9 - Noninfective gastroenteritis and colitis, unspecified Status : Acute Plan: Stool cultures pending Continue Flagyl and Levaquin. Continue supportive care with IVF Appreciate GI following. EGD today. (2) Dehydration Code(s): E86.0 - Dehydration Status: Acute Plan: Continue IVF. Follow up BMP (3) Anxiety Code(s): F41.9 - Anxiety disorder, unspecified Status: Acute Plan: Resume Xanax. Patient normally takes it at home 2-3 times a day. Continue Zoloft and Trazodone. (4) Hypertension Code(s): I10 - Essential (primary) hypertension Status: Acute (5) Fibromyalgia Code(s): M79.7 - Fibromyalgia Status: Acute Plan: Continue home medications. (6) Chronic pain Code(s): G89.29 - Other chronic pain Status: Acute Plan: Continue home medications.
[2017-10-31] MEDS ORDERED: *morphine SULFATE 4 MG/ML PERIprocedure ONLY ONE (19:31)
[2017-10-31] MEDS: levoFLOXacin 500 MG Tablet PO SCH (20:57)
[2017-10-31] MEDS: traZODone 100 MG Tablet PO SCH (21:38)
--- NOTE | 2017-11-01 09:52 | GIPROC ---
[facility] [address] [facility]. [facility], [address] EGD PROCEDURE REPORT EXAM DATE: 10/31/2017 PATIENT NAME: Kerri Marcial I MR #: [id number] BIRTHDATE: 1955 ATTENDING: Viktoriya Chambers MD ORDER #: [id number] BATHROOM TILING PROFESSIONAL: Carlos Harrington and Elaine Gray STATUS: inpatient INDICATIONS: The patient is a 62 yr old female here for an EGD due to vomiting and nausea PROCEDURE PERFORMED: EGD w/ biopsy MEDICATIONS: None and Per Anesthesia. TOPICAL ANESTHETIC: none CONSENT: The patient understands the risks and benefits of the procedure and understands that these risks include, but are not limited to: sedation, allergic reaction, infection, perforation and/or bleeding. Alternative means of evaluation and treatment include, among others: physical exam, x-rays, and/or surgical intervention. The patient elects to proceed with this endoscopic procedure. medical equipment was checked for proper function. Hand hygiene and appropriate measures for infection prevention was taken. After the risks, benefits and alternatives of the procedure were thoroughly explained, Informed consent was verified, confirmed and timeout was successfully executed by the treatment team. The patient was anesthetized with topical anesthesia and the [id number] (Pedi C) endoscope was introduced through the mouth and advanced to the second portion of the duodenum. Retroflexion was performed and was normal The gastroscope was then slowly withdrawn and removed. ESOPHAGUS: A 3 cm hiatal hernia was noted. STOMACH: There was acute moderate and ulcerative gastritis in the entire examined stomach. Multiple biopsies were performed using cold forceps. Sample sent for histology. DUODENUM: Multiple small round erosions were found in the 1st part of the duodenum and 2nd part duodenum. ADVERSE EVENTS: There were no complications. IMPRESSIONS: 1. 3 cm hiatal hernia 2. There was acute gastritis in the entire examined stomach; multiple biopsies were performed 3. Multiple small erosions were found in the 1st part of the duodenum and 2nd part duodenum 4. Retroflexion was performed and was normal RECOMMENDATIONS: 1. Await biopsy results. Biopsy results will not be ready for 7-10 days. If you don't hear from us in two weeks, call our office for biopsy results. 2. Continue PPI 3. Avoid NSAIDS PATIENT CONDITION: stable DISPOSITION: Observation REPEAT EXAM: NONE Viktoriya Chambres MD eSigned: Viktoriya Chambers MD 11/01/2017 9:52 AM cc: PATIENT NAME: Kerri Marcial I MR#: [id number]
--- NOTE | 2017-11-01 09:56 | GIPROC ---
[facility] [address] [facility]. [facility], [address] COLONOSCOPY PROCEDURE REPORT EXAM DATE: 10/31/2017 PATIENT NAME: Kerri Marcial I MR #: [id number] BIRTHDATE: 1955 ENDOSCOPIST: Viktoriya Chambers MD ORDER #: [id number] INTERNAL COMMUNICATIONS MANAGER: Carlos Harrington and Elaine Gray STATUS: inpatient INDICATIONS: The patient is a 62 yr old female here for a colonoscopy due to rectal bleeding and unexplained diarrhea PROCEDURE PERFORMED: Colonoscopy with biopsy MEDICATIONS: None and Per Anesthesia. PREP QUALITY: poor PREP TYPE:Magnesium Citrate ESTIMATED BLOOD LOSS: None CONSENT: The patient understands the risks and benefits of the procedure and understands that these risks include, but are not limited to: sedation, allergic reaction, infection, perforation and/or bleeding. Alternative means of evaluation and treatment include, among others: physical exam, x-rays, and/or surgical intervention. The patient elects to proceed with this endoscopic procedure. medical equipment was checked for proper function. Hand hygiene and appropriate measures for infection prevention was taken. After the risks, benefits and alternatives of the procedure were thoroughly explained, Informed consent was verified, confirmed and timeout was successfully executed by the treatment team. A digital exam revealed no abnormalities of the rectum The Pentax [id number] endoscope was introduced through the anus and advanced to the cecum, which was identified by both the appendix and ileocecal valve. The instrument was then slowly withdrawn as the colon was fully examined. COLON FINDINGS: A diffuse near circumferential patch of colitis was found at the splenic flexure, in the descending colon, and transverse colon. The mucosa was oozing blood, ulcerated, congested and had scarring. Multiple biopsies were performed using cold forceps. Retroflexion was not performed due to a narrow rectal vault The scope was then completely withdrawn from the patient and the procedure terminated. PROCEDURE WITHDRAWAL TIME:8minutes ADVERSE EVENTS: There were no complications. IMPRESSIONS: 1. Diffuse near circumferential colitis was found at the splenic flexure, in the descending colon, and transverse colon; The mucosa was oozing blood, ulcerated, congested and had scarring; multiple biopsies were performed using cold forceps 2. Poor bowel prep limited the exam RECOMMENDATIONS: Await biopsy results. Biopsy results will not be ready for 7-10 days. If you don't hear from us in two weeks, call our office for results. RECALL: Return 2 months Colonoscopy Viktoriya Chambers MD eSigned: Viktoriya Chambers MD 11/01/2017 9:55 AM cc:
[2017-11-01] MEDS: Morphine Sulfate 15 MG SR Tablet PO SCH (10:29)
[2017-11-01] MEDS: Sertraline 100 MG Tablet PO SCH (10:29)
[2017-11-01] MEDS: Ramipril 5 MG Capsule PO SCH (10:29)
[2017-11-01] MEDS: Topiramate 100 MG Tablet PO SCH (10:30)
[2017-11-01] MEDS: Sod Chloride 0.9% Inj 1,000 ML IV.CONT SCH (10:32)
--- NOTE | 2017-11-01 13:31 | P.DS ---
Date of admission: 10/29/17 13:14 Primary care physician: Loco Quiroga MD Brief History from admission: HPI from the admitting physician Mrs. Marcial is a 62 year old female. She has come into the hospital secondary to hyperemesis. Mild dehydration is present. Imaging of the abdomen shows colitis. I question her on whether she has a past history of any recurrent pattern of this condition. Patient says in the past 3 months she might have been having monthly episodes of colitis. Her cooks a lot so she feels that she might have a risk for foodborne illness. No sick contacts which would decrease her chance for a viral illness. No recent antibiotic use but C. difficile colitis is being evaluated for. Primary complaint is abdominal pain which is in her lower abdomen and crampy. She has had a splenectomy, cholecystectomy, and appendectomy. No other complaints. DS: Diagnosis - Discharge Diagnosis (1) Colitis Status: Acute (2) Dehydration Status: Acute (3) Anxiety Status: Acute (4) Hypertension Status: Acute (5) Fibromyalgia Status: Acute (6) Chronic pain Status: Acute DS: Medications - Discharge Medications Prescriptions: metronidazole [Flagyl] 500 mg PO TID #9 tab pantoprazole [Protonix] 40 mg PO DAILY #30 tab DS: Summary Hospital Course: 62-year-old female admitted and treated for the following: (1) Colitis Code(s): K52.9 - Noninfective gastroenteritis and colitis, unspecified Status : Acute Plan: Stool cultures negative. Patient was treated with Flagyl and Levaquin. She underwent EGD which showed gastritis. Biopsies were taken. Her symptoms resolved with supportive care including IV fluid and pain control. Patient is discharged with a couple more doses of Flagyl. She is to follow-up outpatient with GI. (2) Dehydration Code(s): E86.0 - Dehydration Status: Acute Plan: Treated with IV fluid (3) Anxiety Code(s): F41.9 - Anxiety disorder, unspecified Status: Acute Plan: Resume Xanax. Patient normally takes it at home 2-3 times a day. Continue Zoloft and Trazodone. (4) Hypertension Code(s): I10 - Essential (primary) hypertension Status: Acute Stable. (5) Fibromyalgia Code(s): M79.7 - Fibromyalgia Status: Acute Plan: Continue home medications. (6) Chronic pain Code(s): G89.29 - Other chronic pain Status: Acute Plan: Continue home medications. - Time Spent with Patient Total time spent providing and/or coordinating discharge services: - Quality: VTE Deep Vein Thrombosis/Pulmonary Embolism Present on Admission: No Exam Vital signs: Vital Signs 10/31/17 16:00 10/31/17 19:20 10/31/17 19:30 Temperature 98.0 F 98.9 F Pulse Rate 68 68 70 Respiratory Rate 18 21 21 Blood Pressure 160/72 H 158/72 H 137/67 Pulse Oximetry 98 100 100 10/31/17 19:45 10/31/17 19:56 10/31/17 20:00 Temperature 98.9 F 98.3 F Pulse Rate 68 72 Respiratory Rate 25 H 17 Blood Pressure 158/72 H 148/72 H Pulse Oximetry 98 100 98 10/31/17 23:20 10/31/17 23:30 11/01/17 02:15 Temperature 98.7 F Pulse Rate 63 74 Respiratory Rate 19 Blood Pressure 137/60 Pulse Oximetry 98 94 L 11/01/17 03:28 11/01/17 07:24 11/01/17 12:00 Temperature 98.9 F 98.8 F 98.8 F Pulse Rate 80 76 68 Respiratory Rate 17 16 18 Blood Pressure 131/64 134/64 143/67 H Pulse Oximetry 95 97 99 Intake & Output 10/31/17 11/01/17 11/01/17 18:59 06:59 18:59 Intake Total 1000 / 1000 2500 / 2500 Balance 1000 / 1000 2500 / 2500 Weight 46.9 kg Intake: IV 1000 / 1000 1200 / 1200 NS Inj 1,000 ML @ 100 mls/hr IV 1000 / 1000 1000 / 1000 .CONT .Q10H [facility] Rx#:[id number] Flagyl 500 MG Inj 100 ML @ 100 200 / 200 mls/hr IV.SIG Q8H [facility] Rx#: [id number] Oral 0 / 0 1000 / 1000 Anesthesia Amount 300 / 300 Other: # Voids 3 Narrative: GENERAL: This is a well-nourished, well-developed patient, in no apparent distress. CARDIOVASCULAR: Normal rate and regular rhythm without murmurs, gallops, or rubs. RESPIRATORY: Good respiratory efforts. Breath sounds equal and clear to auscultation bilaterally. GASTROINTESTINAL: Abdomen soft, non-tender, non-distended. Normal active bowel sounds MUSCULOSKELETAL: Extremities without cyanosis, or edema. NEURO: Alert & Oriented x4 to person, place, time, situation. Moves all ext x4 PSYCH: Appropriate mood and affect. Results Procedures completed during hospitalization: EGD which showed gastritis Pending studies at discharge: Pending at discharge 10/31/17 Surgical [PTH] Routine - Impressions ITS Impressions Abdomen/Pelvis CT 10/29/17 09:46 CONCLUSION: 1. Diffuse colitis but greatest involving the descending and sigmoid colon. Slight inflammatory changes and minimal ascites. No perforation or abscess. 2. Cholecystectomy. Discharge Plan - Discharge Disposition Patient Disposition: Discharge Home - Discharge Condition Condition: Good - Discharge Order Discharge Orders: Discharge Order (Routine); Ordered 11/01/17 Ordered By: Luther Berumen - Physicians Team Primary Care Provider: Loco Quiroga V Attending Provider: Luther Berumen Other Providers: Barbara Ayers MD
== END 2017-11-01 14:40 | disposition home or self-care (01) ==
LOC: NEPE 07:28 → NEDA 07:28 → NEPHCDU 07:28 → NEDA 15:37 → NEPHCDU 15:40
PROVIDERS: ADMIT Family Medicine; ATTEND Family Medicine
PROC: PANENDO (2017-10-31 18:29)
PROC: COLONOS (2017-10-31 18:29)
DX: K29.80 Duodenitis without bleeding; Z87.891 Personal history of nicotine dependence; K62.5 Hemorrhage of anus and rectum; F41.9 Anxiety disorder, unspecified; D72.829 Elevated white blood cell count, unspecified; K52.9 Noninfective gastroenteritis and colitis, unspecified; E78.5 Hyperlipidemia, unspecified; K44.9 Diaphragmatic hernia without obstruction or gangrene; F32.9 Major depressive disorder, single episode, unspecified; R07.9 Chest pain, unspecified; E78.00 Pure hypercholesterolemia, unspecified; G43.909 Migraine, unspecified, not intractable, without status migrainosus; I10 Essential (primary) hypertension; K57.90 Diverticulosis of intestine, part unspecified, without perforation or abscess without bleeding; G89.29 Other chronic pain; R11.2 Nausea with vomiting, unspecified; E86.0 Dehydration; M79.7 Fibromyalgia; Z79.82 Long term (current) use of aspirin; K29.70 Gastritis, unspecified, without bleeding; Z82.49 Family history of ischemic heart disease and other diseases of the circulatory system; Z79.899 Other long term (current) drug therapy; R18.8 Other ascites